=== PATIENT | female | born 1950 | race Caucasian/White ===

== ENCOUNTER 2017-10-12 07:14 | Outpatient (CLI) | payer OTHER | END 2017-10-12 07:16 | disposition home or self-care (01) | LOC: NUCLEAR 07:14 | DX: R07.89 Other chest pain (principal) ==

== ENCOUNTER 2017-11-12 09:30 | Outpatient (CLI) | payer OTHER | END 2017-11-12 09:37 | disposition home or self-care (01) | LOC: NUCLEAR 09:30 | DX: I73.9 Peripheral vascular disease, unspecified (principal) ==

== ENCOUNTER 2023-03-03 07:18 | Outpatient (CLI) | payer OTHER | END 2023-03-03 07:19 | disposition home or self-care (01) | LOC: NUCLEAR 07:18 | PROVIDERS: ATTEND Internal Medicine Gastroenterology | DX: K21.9 Gastro-esophageal reflux disease without esophagitis (principal); K30 Functional dyspepsia; R19.6 Halitosis; K44.9 Diaphragmatic hernia without obstruction or gangrene; R14.2 Eructation; K31.89 Other diseases of stomach and duodenum; K22.89 Other specified disease of esophagus | CPT/HCPCS: 78264; A9541 ==